=== PATIENT | male | born 1970 | race Caucasian/White ===

== ENCOUNTER 2018-04-07 07:18 | Day surgery (SDC) | payer OTHER ==
[2018-04-07] MEDS ORDERED: WATER FOR IRRIG STERILE IR ONE (07:34)
--- NOTE | 2018-04-07 07:58 | Anesthesia Consultation ---
Anesthesia Consult and Med Hx - Airway Anesthetic Teeth Evaluation: Good ROM Head & Neck: Adequate Mental/Hyoid Distance: Adequate Mallampati Class: Class II Intubation Access Assessment: Probably Good - Pulmonary Exam CTA: Yes - Cardiac Exam Cardiac Exam: RRR Anesthetic Concerns: multiple dental implants including upper incisors. - Pre-Operative Health Status ASA Pre-Surgery Classification: ASA2 Proposed Anesthetic Plan: MAC - Gastrointestinal Hx Gastroesophageal Reflux Disease: Yes (on zantac, asymptomatic today.)
--- NOTE | 2018-04-07 07:59 | Anesthesia Day of Surgery ---
Anesthesia Day of Surgery - Day of Surgery Patient Examined: Yes Patient H&P Reviewed: Yes Patient is NPO: Yes
[2018-04-07] MEDS ORDERED: NACL 0.9% 1000 ML 1,000 ML IV SCH (09:00)
[2018-04-07] MEDS ORDERED: DIPRIVAN 10 MG/ML IV ONE (09:12)
[2018-04-07] MEDS ORDERED: XYLOCAINE 1% 20 mL ONE (09:12)
[2018-04-07] MEDS ORDERED: SUBLIMAZE ONE (09:16)
--- NOTE | 2018-04-07 09:33 | Post Anesthesia Evaluation ---
- Post Anesthesia Evaluation Patient Participated: Yes Airway Patent: Yes Stable Respiratory Function: Yes Temp > 96.8F: Yes Pain Manageable: Yes Adequeate Hydration: Yes Anesthesia Complications: No
--- NOTE | 2018-04-07 09:35 | Procedure Note ---
Date of procedure: 04/07/18 Pre-op diagnosis: Epigastric and Right Upper Quadrant Pain Post-op diagnosis: other (Moderate, Distal Erosive Esophagitis/ Gastritis/ R/O Celiac Disease/ No Peptic, Ulcer Disease noted) Procedure: EGD with Biopsy Anesthesia: MAC Surgeon: CHLOÉ LEAVITT Estimated blood loss: minimal Pathology: list Specimen disposition: to lab Condition: stable Disposition: same day (Treat with PPI. Encourage patient to refrain from smoking and alcohol use. Follow up in 1 to 2 weeks ([phone]).)
--- NOTE | 2018-04-07 09:56 | Operative Report ---
PROCEDURE: Esophagogastroduodenoscopy with biopsy. INDICATIONS: This is a 48-year-old gentleman originally from [place] who has been complaining of some abdominal pain and discomfort involving mainly the epigastric and right upper quadrant. He has been on ranitidine without much improvement. An EGD was done to make sure there was not any significant upper GI pathology present. The procedure was done after getting informed consent with MAC anesthesia. Instrument was passed through the hypopharynx into the esophagus, which showed moderate distal erosive esophagitis. Biopsy was done from the distal esophagus. Stomach showed antral gastritis. No ulcers were noted in the straight or the retroverted view. The pylorus is patent. The duodenum in the first and second portion appeared normal. Biopsy was done from the second part of the duodenum to rule out for possible celiac disease. Additional biopsy was done from the gastric antrum, angularis incisura and gastric body to rule out for H. pylori and atrophic gastritis. There was minimal bleeding from the biopsy sites. No complications associated with the procedure. ASSESSMENT: Epigastric and right upper quadrant pain, moderate distal erosive esophagitis, gastritis, rule out celiac disease. No peptic ulcer disease noted. PLAN: Plan is to treat the patient with PPI, have the patient to avoid aspirin and aspirin-related products for the next few days. Follow up in the office in 1-2 weeks' time. Lab work, namely liver function test and CBC will be done. If the patient has persistence of the pain, then the patient may require an ultrasound of the liver and at some point may require also a colonoscopy to be done because of his age. RN, Sara Infante, was in the room throughout the entirety of the procedure. JOB# [id number] MICHELLE/ALLEN
[2018-04-07 10:19] LABS: Basophils # (Auto) 0.1 K/mm3 (0.0-0.1); Basophils % (Auto) 1.1 % (0.0-1.8); Eosinophils # (Auto) 0.1 K/mm3 (0.0-0.4); Eosinophils % (Auto) 2.1 % (0.0-4.3); Hematocrit 44.9 % (35.5-45.6); Hemoglobin 15.6 gm/dl (11.8-15.2); Lymphocytes # (Auto) 1.7 K/mm3 (1.2-5.4); Lymphocytes % (Auto) 29.9 % (13.4-35.0); Mean Corpuscular HGB Conc 35 % (32-34); Mean Corpuscular Volume 88 fl (84-94); Monocytes # (Auto) 0.3 K/mm3 (0.0-0.8); Monocytes % (Auto) 5.7 % (0.0-7.3); Platelet Count 218 K/mm3 (140-440); Red Cell Distribution Width 13.4 % (13.2-15.2)
[2018-04-07 10:22] VITALS: BP 117/76
[2018-04-07 10:32] LABS: Alanine Aminotransferase 42 units/L (7-56); Albumin 4.1 g/dL (3.9-5)
[2018-04-07 10:34] LABS: Bilirubin,Direct < 0.2 mg/dL (0-0.2)
== END 2018-04-07 07:19 | disposition home or self-care (01) ==
LOC: GIO 07:18
DX: K29.50 Unspecified chronic gastritis without bleeding (principal); K21.0 Gastro-esophageal reflux disease with esophagitis; Z79.899 Other long term (current) drug therapy; Z87.891 Personal history of nicotine dependence
CPT/HCPCS: 36415; 43239; 80076; 85025; 88305; 88342; J2704; J3010; J7030

== ENCOUNTER 2018-04-24 06:55 | Outpatient (CLI) | payer OTHER ==
--- NOTE | 2018-04-24 07:52 | Ultrasound Report ---
ULTRASOUND ABDOMEN LIMITED: TECHNIQUE: Transabdominal ultrasound with color Doppler interrogation. HISTORY: right upper quadrant abdominal pain. COMPARISON: none. FINDINGS: LIVER: There is diffuse fatty change throughout the liver. BILIARY SYSTEM: Normal. PANCREAS: Normal. RIGHT KIDNEY: Normal. PROXIMAL AORTA: Normal. ASCITES: None. IMPRESSION: Hepatic steatosis.
== END 2018-04-24 06:56 | disposition home or self-care (01) ==
LOC: US 06:55
DX: K76.0 Fatty (change of) liver, not elsewhere classified (principal); K21.9 Gastro-esophageal reflux disease without esophagitis
CPT/HCPCS: 76705